=== PATIENT | male | born 1985 | race Caucasian/White ===

== ENCOUNTER 2017-11-21 17:37 | Emergency (ER) | payer MEDICAID ==
[~2017-11-21] VITALS: Ht 180.3 cm; Wt 109.1 kg
[~2017-11-21 17:37] MED LIST: CLON0.1T PO; CLON1TAB4 PO; DICY10CA88 PO; ONDA4TAB6 PO; PROM25TA14 PO
[2017-11-21] MEDS ORDERED: LORazepam 1 MG tablet PO ONE (18:05)
[2017-11-21] MEDS ORDERED: nicotine 14mg patch - 24hr TD ONE (18:05)
[2017-11-21 18:58] VITALS: BP 131/76
[2017-11-22] MEDS ORDERED: MULT1CAP44 PO (15:15)
[2017-11-22] MEDS ORDERED: THI100T PO (15:15)
[2017-11-22] MEDS ORDERED: LORA-269 PO (15:35)
== END 2017-11-21 18:59 | disposition home or self-care (01) ==
LOC: ER 17:37
DX: F10.10 Alcohol abuse, uncomplicated (principal); F15.10 Other stimulant abuse, uncomplicated; F12.10 Cannabis abuse, uncomplicated
CPT/HCPCS: 99283

== ENCOUNTER 2020-10-24 19:35 | Emergency (ER) | payer MEDICAID ==
[~2020-10-24] VITALS: Ht 177.8 cm; Wt 92.3 kg
[~2020-10-24 19:35] MED LIST changes: +CLON-371 PO; -CLON1TAB4 PO; +LORA-269 PO; +MULT1CAP44 PO; +PANT20TA18 PO
[2020-10-24 20:32] LABS: BASOPHILS # (AUTO) 0.1 X10'3 (0-0.2); BASOPHILS % (AUTO) 1.1 % (0-1); EOSINOPHILS # (AUTO) 0.3 X10'3 (0-0.9); EOSINOPHILS % (AUTO) 3.4 % (0-6); HEMATOCRIT 46.2 % (42.0-52.0); HEMOGLOBIN 15.4 g/dl (14.0-17.9); LYMPHOCYTES # (AUTO) 2.5 X10'3 (1.1-4.8); MEAN CORPUSCULAR HEMOGLOBIN 29.7 PG (27.0-31.0); MEAN CORPUSCULAR HGB CONC 33.3 g/dL (33.0-36.5); MEAN CORPUSCULAR VOLUME 89.2 FL (78-98); MEAN PLATELET VOLUME 7.3 FL (7.4-10.4); MONOCYTES # (AUTO) 0.7 X10'3 (0-0.9); NEUTROPHILS % (AUTO) 53.5 % (42-75); PLATELET COUNT 308 X10'3 (140-440); RED BLOOD COUNT 5.18 X10'6 (4.70-6.10); RED CELL DISTRIBUTION WIDTH 16.4 % (11.5-14.5); WHITE BLOOD COUNT 7.5 X10'3 (4.5-11.0)
[2020-10-24 20:44] LABS: ALANINE AMINOTRANSFERASE 105 U/L (12-78); ALBUMIN 3.3 G/DL (3.4-5.0); ALBUMIN/GLOBULIN RATIO 0.8 (1.1-1.5); ALKALINE PHOSPHATASE 90 IU/L (46-116); ANION GAP 8 (8-16); ASPARTATE AMINO TRANSFERASE 110 U/L (10-37); BILIRUBIN,TOTAL 0.3 MG/DL (0.1-1.0); BLOOD UREA NITROGEN 6 MG/DL (7-18); BUN/CREATININE RATIO 6.5 (5.4-32.0); CALCIUM 8.4 MG/DL (8.5-10.1); CHLORIDE 100 MMOL/L (99-107); CREATININE 0.92 MG/DL (0.60-1.10); GLUCOSE 85 MG/DL (70-104); LIPASE 329 U/L (73-393); POTASSIUM 3.2 MMOL/L (3.5-5.1); SODIUM 143 MMOL/L (135-145); TOTAL CARBON DIOXIDE 35.5 MMOL/L (24-32); TOTAL PROTEIN 7.2 G/DL (6.4-8.2); eGFR > 90 ML/MIN
[2020-10-24] MEDS ORDERED: diazepam 5mg tablet PO ONE (22:40)
[2020-10-24] MEDS ORDERED: ondansetron 4mg rapidly disintigrating tab PO ONE (22:40)
--- NOTE | 2020-10-24 22:40 | NUR ---
MD AWARE THAT PATIENT IS TEMULOUS; NO TONGUE FASCICULATIONS
--- NOTE | 2020-10-24 22:43 | NUR ---
DR ROTHMAN IN ROOM ORDERS RECEIVED, 1 IV ATTEMPT BY DENNIS ROBERTS. OK TO HOLD OFF ON IV, PO CHALLENGE FIRST
--- NOTE | 2020-10-24 22:53 | NUR ---
PATIENT DRANK 500 ML H20
--- NOTE | 2020-10-24 22:58 | NUR ---
tech asked for second time to do ekg
--- NOTE | 2020-10-24 23:45 | NUR ---
Took over care of pt. Cannot find EKG, consulted with Dr. Bedolla who states she has seen it.
--- NOTE | 2020-10-25 02:00 | NUR ---
Pt sleeping, vitals taken
[2020-10-25 06:08] VITALS: BP 128/81
== END 2020-10-25 06:10 | disposition home or self-care (01) ==
LOC: ER 19:36
DX: K29.20 Alcoholic gastritis without bleeding (principal); F10.10 Alcohol abuse, uncomplicated; R07.89 Other chest pain; R10.84 Generalized abdominal pain; R11.2 Nausea with vomiting, unspecified; R05 Cough; F31.9 Bipolar disorder, unspecified; F20.9 Schizophrenia, unspecified; F17.200 Nicotine dependence, unspecified, uncomplicated; F12.90 Cannabis use, unspecified, uncomplicated; F15.90 Other stimulant use, unspecified, uncomplicated; F11.90 Opioid use, unspecified, uncomplicated; Z86.69 Personal history of other diseases of the nervous system and sense organs; Z72.89 Other problems related to lifestyle; Z56.0 Unemployment, unspecified; Z79.899 Other long term (current) drug therapy; Y90.9 Presence of alcohol in blood, level not specified
CPT/HCPCS: 36415; 80053; 83690; 85025; 93005; 99285

== ENCOUNTER 2020-10-25 08:47 | Emergency (ER) | payer MEDICAID ==
[~2020-10-25] VITALS: Ht 180.3 cm; Wt 91.7 kg
[2020-10-25 09:02] VITALS: BP 121/79
[2020-10-25] MEDS ORDERED: ondansetron 4mg rapidly disintigrating tab PO ONE (10:25)
[2020-10-25] MEDS ORDERED: chlordiazePOXIDE 25mg capsule PO ONE (10:25)
== END 2020-10-25 10:38 | disposition home or self-care (01) ==
LOC: ER 08:47
DX: F10.10 Alcohol abuse, uncomplicated (principal); F31.9 Bipolar disorder, unspecified; F20.9 Schizophrenia, unspecified; F17.200 Nicotine dependence, unspecified, uncomplicated; F12.90 Cannabis use, unspecified, uncomplicated; F15.90 Other stimulant use, unspecified, uncomplicated; Z86.69 Personal history of other diseases of the nervous system and sense organs; Z72.89 Other problems related to lifestyle; Z56.0 Unemployment, unspecified; Z79.899 Other long term (current) drug therapy; Y90.9 Presence of alcohol in blood, level not specified
CPT/HCPCS: 99283

== ENCOUNTER 2020-10-27 15:28 | Emergency (ER) | payer MEDICAID ==
[~2020-10-27] VITALS: Ht 180.3 cm; Wt 93.2 kg
[2020-10-27] MEDS ORDERED: normal saline 1000ML IV soln IV ONE (15:50)
[2020-10-27] MEDS ORDERED: folic acid 1mg/0.2ml inj IV ONE (15:50)
[2020-10-27] MEDS ORDERED: LORazepam 2 mg/ml vial IV ONE (15:50)
[2020-10-27] MEDS ORDERED: ondansetron/PF 4mg/2ml inj IV ONE (15:50)
[2020-10-27] MEDS ORDERED: thiamine 100mg/ml 2ml inj. IV ONE (15:50)
[2020-10-27 16:35] LABS: BASOPHILS # (AUTO) 0.1 X10'3 (0-0.2); BASOPHILS % (AUTO) 1.2 % (0-1); EOSINOPHILS # (AUTO) 0.2 X10'3 (0-0.9); EOSINOPHILS % (AUTO) 2.2 % (0-6); HEMATOCRIT 42.6 % (42.0-52.0); HEMOGLOBIN 14.2 g/dl (14.0-17.9); LYMPHOCYTES # (AUTO) 2.7 X10'3 (1.1-4.8); LYMPHOCYTES % (AUTO) 28.6 % (21-51); MEAN CORPUSCULAR HEMOGLOBIN 29.4 PG (27.0-31.0); MEAN CORPUSCULAR HGB CONC 33.3 g/dL (33.0-36.5); MEAN CORPUSCULAR VOLUME 88.3 FL (78-98); MEAN PLATELET VOLUME 8.4 FL (7.4-10.4); MONOCYTES # (AUTO) 0.8 X10'3 (0-0.9); MONOCYTES % (AUTO) 8.7 % (2-12); NEUTROPHILS # (AUTO) 5.5 X10'3 (1.8-7.7); NEUTROPHILS % (AUTO) 59.3 % (42-75); PLATELET COUNT 279 X10'3 (140-440); RED BLOOD COUNT 4.82 X10'6 (4.70-6.10); RED CELL DISTRIBUTION WIDTH 16.5 % (11.5-14.5); WHITE BLOOD COUNT 9.3 X10'3 (4.5-11.0)
[2020-10-27 16:46] LABS: ALANINE AMINOTRANSFERASE 94 U/L (12-78); ALBUMIN 2.7 G/DL (3.4-5.0); ALBUMIN/GLOBULIN RATIO 0.8 (1.1-1.5); ALKALINE PHOSPHATASE 71 IU/L (46-116); ANION GAP 5 (8-16); ASPARTATE AMINO TRANSFERASE 60 U/L (10-37); BILIRUBIN,TOTAL 0.3 MG/DL (0.1-1.0); BLOOD UREA NITROGEN 9 MG/DL (7-18); BUN/CREATININE RATIO 10.3 (5.4-32.0); CALCIUM 8.9 MG/DL (8.5-10.1); CHLORIDE 103 MMOL/L (99-107); CREATININE 0.87 MG/DL (0.60-1.10); GLUCOSE 88 MG/DL (70-104); SODIUM 138 MMOL/L (135-145); TOTAL CARBON DIOXIDE 30.4 MMOL/L (24-32); TOTAL PROTEIN 6.3 G/DL (6.4-8.2); eGFR > 90 ML/MIN
[2020-10-27] MEDS ORDERED: famotidine/PF 10 mg/ml inj IV ONE (17:00)
[2020-10-27] MEDS ORDERED: GABA300C PO (17:10)
[2020-10-27] MEDS ORDERED: LORA-269 PO (17:10)
[2020-10-27 17:49] VITALS: BP 129/77
== END 2020-10-27 17:58 | disposition home or self-care (01) ==
LOC: ER 15:28
DX: F10.239 Alcohol dependence with withdrawal, unspecified (principal); R10.13 Epigastric pain; R11.0 Nausea; R19.7 Diarrhea, unspecified; R07.89 Other chest pain; F31.9 Bipolar disorder, unspecified; F20.9 Schizophrenia, unspecified; F17.200 Nicotine dependence, unspecified, uncomplicated; F12.90 Cannabis use, unspecified, uncomplicated; F15.90 Other stimulant use, unspecified, uncomplicated; F11.90 Opioid use, unspecified, uncomplicated; Z86.69 Personal history of other diseases of the nervous system and sense organs; Z72.89 Other problems related to lifestyle; Z56.0 Unemployment, unspecified; Z79.899 Other long term (current) drug therapy; Y90.9 Presence of alcohol in blood, level not specified
CPT/HCPCS: 36415; 71045; 80053; 85025; 93005; 96361; 96374; 96375; 99285; J2060; J2405; J3411; J3490; J7030

== ENCOUNTER 2020-10-31 02:22 | Emergency (ER) | payer MEDICAID ==
[~2020-10-31] VITALS: Ht 177.8 cm; Wt 95.5 kg
[~2020-10-31 02:22] MED LIST changes: +GABA300C PO
[2020-10-31 02:29] VITALS: BP 128/89
== END 2020-10-31 04:19 | disposition home or self-care (01) ==
LOC: ER 02:23
DX: F20.9 Schizophrenia, unspecified (principal); R50.9 Fever, unspecified; R09.81 Nasal congestion; F31.9 Bipolar disorder, unspecified; F17.200 Nicotine dependence, unspecified, uncomplicated; F15.90 Other stimulant use, unspecified, uncomplicated; F11.90 Opioid use, unspecified, uncomplicated; F12.90 Cannabis use, unspecified, uncomplicated; Z86.69 Personal history of other diseases of the nervous system and sense organs; Z72.89 Other problems related to lifestyle; Z56.0 Unemployment, unspecified; Z79.899 Other long term (current) drug therapy
CPT/HCPCS: 99281